=== PATIENT | male | born 1990 | race African-American/Black ===

== ENCOUNTER 2020-07-19 15:25 | Emergency (ER) | payer MEDICAID, SELFPAY ==
[~2020-07-19] VITALS: Ht 170.2 cm; Wt 59.0 kg
[2020-07-19 15:26] VITALS: BP 119/78; Ht 170.2 cm; Wt 59.0 kg
== END 2020-07-19 17:05 | disposition home or self-care (01) ==
LOC: ED 15:25
DX: U07.1 COVID-19 (principal); F17.210 Nicotine dependence, cigarettes, uncomplicated
CPT/HCPCS: 99406